=== PATIENT | female | born 1950 | race Caucasian/White ===

== ENCOUNTER 2018-10-05 20:54 | Inpatient (IN) ==
[2018-10-05] MEDS ORDERED: LEVOFLOXACIN INJ 750 MG in PREMIX 1 EACH IV STA (22:33)
[2018-10-05 22:39] LABS: Basophils # 0.1 10*3/uL (0.0-0.2); Basophils % 0.3 % (0.0-0.8); Eosinophils % 0.2 % (0.00-10.9); Hematocrit 37.3 VOL% (35.7-47.0); Hemoglobin 11.9 GM/DL (12.0-16.0); Immature Granulocytes % 0.8 %; Immature Granulocytes Absolute 0.15 #; Lymphocytes # 1.1 10*3/uL (1.4-4.0); Lymphocytes % 5.8 % (21.3-54.2); Mean Corpuscular HGB Conc 31.9 GM/DL (32-36); Mean Corpuscular Volume 85.2 FL (87-102); Mean Platelet Volume 9.9 FL (9.6-12.0); Monocytes % 2.7 % (1.7-12.7); Neutrophils % 90.2 % (38.7-73.9); Platelet Count 211 T/CUMM (130-400); Red Blood Count 4.38 MC/CUMM (3.8-5.5); Red Cell Distribution Width 13.5 % (9.3-17.3); White Blood Count 19.5 T/CUMM (4-12)
[2018-10-05 23:03] LABS: Alanine Aminotransferase 21 U/L (13-56); Albumin 3.5 G/DL (3.4-5.0); Alkaline Phosphatase 74 U/L (45-117); Aspartate Amino Transferase 22 U/L (0-37); Bilirubin,Total < 0.39 MG/DL (0.2-1.0); Blood Urea Nitrogen 21 MG/DL (7-18); Calcium 8.4 MG/DL (8.5-10.1); Glucose 112 MG/DL (74-106); Total Protein 7.4 G/DL (6.4-8.3)
[2018-10-05 23:06] LABS: Apearance,Urine CLEAR (Clear); Bacteria,Urine Occasional /HPF (Few); Bilirubin,Urine Negative (Negative); Blood, Urine Small mg/dL (Negative); Glucose,Urine (UA) 50 mg/dL (Negative); Ketones,Urine Negative (Negative); Mucus,Urine Occasional /LPF (Occasional); Nitrite,Urine Negative (Negative); Protein,Urine Negative; RBC,Urine 2 /HPF (0-4); Squamous Epithelial Cell,Urine Occasional /HPF (0-10); Urine Color Yellow (Yellow); Urine Specific Gravity 1.015 (1.001-1.035); Urine Urobilinogen < 2.0 EU/DL (0.2-1.0); WBC,Urine 5 /HPF (0-6)
[2018-10-05] MEDS ORDERED: oxyCODONE/ACETAMINOPHEN 5-325 MG TABLET PO PRN (23:18)
[2018-10-05] MEDS ORDERED: ONDANSETRON 4 MG/2 ML VIAL IV PRN (23:18)
[2018-10-05] MEDS ORDERED: ACETAMINOPHEN 325 MG TABLET PO PRN (23:18)
[2018-10-05] MEDS ORDERED: IBUPROFEN 600 MG TABLET PO PRN (23:18)
[2018-10-05] MEDS ORDERED: MORPHINE 4 MG/1 ML VIAL IV PRN (23:18)
[2018-10-05] MEDS ORDERED: diphenhydrAMINE 50 MG/1 ML VIAL IV STA (23:35)
[2018-10-05] MEDS ORDERED: MORPHINE 4 MG/1 ML VIAL IV STA (23:35)
[2018-10-05] MEDS ORDERED: ACETAMINOPHEN 500 MG TABLET ONE ×2 (23:43)
[2018-10-05] MEDS ORDERED: IBUPROFEN 400 MG TABLET ONE (23:47)
[2018-10-05] MEDS ORDERED: IBUPROFEN 800 MG TABLET PO ONE (23:48)
[2018-10-06] MEDS: KETOROLAC 30 MG/1 ML VIAL IV PRN ×3 (00:33→19:06)
[2018-10-06 02:24] LABS: Basophils # 0.1 10*3/uL (0.0-0.2); Basophils % 0.4 % (0.0-0.8); Eosinophils % 0.1 % (0.00-10.9); Hematocrit 33.5 VOL% (35.7-47.0); Hemoglobin 10.7 GM/DL (12.0-16.0); Immature Granulocytes % 0.4 %; Immature Granulocytes Absolute 0.06 #; Lymphocytes # 0.9 10*3/uL (1.4-4.0); Lymphocytes % 6.5 % (21.3-54.2); Mean Corpuscular HGB Conc 31.9 GM/DL (32-36); Mean Platelet Volume 9.7 FL (9.6-12.0); Monocytes % 2.7 % (1.7-12.7); Neutrophils % 89.9 % (38.7-73.9); Platelet Count 170 T/CUMM (130-400); Red Blood Count 3.99 MC/CUMM (3.8-5.5); Red Cell Distribution Width 13.6 % (9.3-17.3); White Blood Count 13.7 T/CUMM (4-12)
[2018-10-06] MEDS ORDERED: PANTOPRAZOLE 40 MG TABLET PO SCH (09:30)
[2018-10-06] MEDS: amLODIPine 10 MG TABLET PO SCH (09:34)
[2018-10-06] MEDS: DOCUSATE SODIUM 100 MG CAPSULE PO SCH ×2 (09:34→20:33)
[2018-10-06] MEDS: busPIRone 10 MG TABLET PO SCH ×2 (09:34→20:33)
[2018-10-06] MEDS: TAMOXIFEN 10 MG TABLET PO SCH (09:34)
[2018-10-06] MEDS: CLINDAMYCIN INJ 300 MG in PREMIX 1 EACH IV SCH ×2 (09:35→17:46)
[2018-10-06] MEDS: FLUTICASONE 50 MCG NASAL SPRAY 16 GM BOTTLE BOTH NARES SCH (09:35)
[2018-10-06] MEDS: SIMVASTATIN 20 MG TABLET PO SCH (09:35)
[2018-10-06] MEDS: PANTOPRAZOLE 40 MG TABLET PO SCH (09:35)
[2018-10-06] MEDS: IBUPROFEN 800 MG TABLET PO PRN ×2 (09:37→17:45)
[2018-10-06] MEDS: MAGNESIUM CHLORIDE 64 MG TABLET PO SCH (10:26)
[2018-10-06] MEDS: NORTRIPTYLINE 25 MG CAPSULE PO SCH (10:26)
[2018-10-06] MEDS: CALCIUM (CARBONATE)/VITAMIN D 600 MG-400 UNIT TABLET PO SCH (10:26)
[2018-10-06] MEDS: SERTRALINE 100 MG TABLET PO SCH (10:39)
[2018-10-06] MEDS: ALBUTEROL 2.5 MG/3 ML NEB RESP TX SCH ×3 (13:32→20:08)
[2018-10-06] MEDS ORDERED: LEVOFLOXACIN INJ 750 MG in PREMIX 1 EACH IV SCH (22:00)
[2018-10-07] MEDS: CLINDAMYCIN INJ 300 MG in PREMIX 1 EACH IV SCH ×2 (00:10→08:50)
[2018-10-07] MEDS: ALBUTEROL 2.5 MG/3 ML NEB RESP TX SCH ×2 (00:47→07:48)
[2018-10-07] MEDS: IBUPROFEN 800 MG TABLET PO PRN (03:59)
[2018-10-07 04:04] LABS: Basophils % 0.6 % (0.0-0.8); Eosinophils # 0.1 10*3/uL (0.0-0.87); Eosinophils % 1.9 % (0.00-10.9); Hemoglobin 11.2 GM/DL (12.0-16.0); Immature Granulocytes % 0.4 %; Immature Granulocytes Absolute 0.03 #; Lymphocytes # 1.7 10*3/uL (1.4-4.0); Lymphocytes % 23.2 % (21.3-54.2); Mean Corpuscular Volume 85.2 FL (87-102); Mean Platelet Volume 10.3 FL (9.6-12.0); Monocytes % 8.6 % (1.7-12.7); Neutrophils % 65.3 % (38.7-73.9); Platelet Count 169 T/CUMM (130-400); Red Blood Count 4.11 MC/CUMM (3.8-5.5); Red Cell Distribution Width 13.8 % (9.3-17.3); White Blood Count 7.3 T/CUMM (4-12)
[2018-10-07 04:39] LABS: Calcium 8.4 MG/DL (8.5-10.1); Osmolality,Calculated 283.1 MOS/KG (273-304)
[2018-10-07] MEDS ORDERED: POTASSIUM CHLORIDE 8 MEQ CAPSULE PO ONE (08:25)
[2018-10-07] MEDS: amLODIPine 10 MG TABLET PO SCH (08:48)
[2018-10-07] MEDS: SERTRALINE 100 MG TABLET PO SCH (08:48)
[2018-10-07] MEDS: DOCUSATE SODIUM 100 MG CAPSULE PO SCH (08:48)
[2018-10-07] MEDS: busPIRone 10 MG TABLET PO SCH (08:48)
[2018-10-07] MEDS: TAMOXIFEN 10 MG TABLET PO SCH (08:48)
[2018-10-07] MEDS: CALCIUM (CARBONATE)/VITAMIN D 600 MG-400 UNIT TABLET PO SCH (08:49)
[2018-10-07] MEDS: SIMVASTATIN 20 MG TABLET PO SCH (08:49)
[2018-10-07] MEDS: MAGNESIUM CHLORIDE 64 MG TABLET PO SCH (08:49)
[2018-10-07] MEDS: NORTRIPTYLINE 25 MG CAPSULE PO SCH (08:49)
[2018-10-07] MEDS: PANTOPRAZOLE 40 MG TABLET PO SCH (08:49)
[2018-10-07] MEDS: FLUTICASONE 50 MCG NASAL SPRAY 16 GM BOTTLE BOTH NARES SCH (08:50)
[2018-10-07 09:04] VITALS: BP 144/77
== END 2018-10-07 10:46 | disposition home or self-care (01) | DRG 603 ==
LOC: N.ED 20:54 → N.EDINP 23:18 → N.4E 23:44
PROVIDERS: ADMIT Internal Medicine; ATTEND Internal Medicine